=== PATIENT | female | born 1975 | race American Indian/Alaskan Native ===

== ENCOUNTER 2016-08-07 14:13 | Emergency (ER) | payer MEDICAID, MEDICARE ==
[2016-08-07 14:28] VITALS: BP 102/83; PULSE 67; RESP 16; TEMP 98; O2SAT 99
[2016-08-07] MEDS ORDERED: Lidocaine 1% Inj (20ml) ONE (15:12)
[2016-08-07] MEDS ORDERED: TDAP Vaccine 0.5 mL Syr IM ONE ×2 (15:13→15:57)
--- NOTE | 2016-08-07 15:56 | ED PDOC ---
HPI: Wound Care - HPI Time Seen by Provider: 08/07/16 14:55 Chief Complaint (Nursing): Abnormal Skin Integrity Chief Complaint (Provider): finger laceration Additional Complaint(s): 41 year old [id number] female presents with laceration to right fifth digit sustained when she was washing a glass and it broke in her hand. Patient applied pressure dressing and came to ED. She is not sure of last tetanus. She has mild pain to the affected area but denies any numbness or tingling. Past Medical History Reviewed: Historical Data, Nursing Documentation, Vital Signs Vital Signs: Last Vital Signs Temp 98.0 F 08/07/16 14:27 Pulse 67 08/07/16 14:27 Resp 16 08/07/16 14:27 BP 102/83 08/07/16 14:27 Pulse Ox 99 08/07/16 14:27 - Medical History PMH: Hypothyroidism - Surgical History Other surgeries: tubal ligation - Family History Family History: States: No Known Family Hx - Living Arrangements Living Arrangements: With Family - Social History Current smoker - smoking cessation education provided: No Alcohol: None Drugs: Denies - Home Medications Home Medications: Ambulatory Orders Medication Instructions Recorded Acetaminophen [Tylenol 325mg tab] 2 tab PO Q6H #50 tab 06/30/15 Ketorolac Tromethamine [Toradol] 10 mg PO 19 #0 tab 06/30/15 Levothyroxine [Synthroid] 1 tab PO DAILY 06/30/15 diaZEpam [Valium] 5 mg PO QID #12 tab 06/30/15 Ibuprofen [Motrin Tab] 800 mg PO Q8 PRN #20 tab 08/07/16 - Allergies Allergies/Adverse Reactions: Allergies Allergy/AdvReac Type Severity Reaction Status Date / Time No Known Allergies Allergy Verified 08/07/16 14:27 Review of Systems ROS Statement: Except As Marked, All Systems Reviewed And Found Negative Musculoskeletal: Positive for: Other (right 5th digit laceration) Physical Exam - Reviewed Nursing Documentation Reviewed: Yes Vital Signs Reviewed: Yes - Physical Exam Appears: Positive for: Well, Non-toxic, No Acute Distress Skin: Negative for: Rash Eye Exam: Positive for: Normal appearance Neck: Positive for: Painless ROM Extremity: Positive for: Other (2 cm flap laceration noted to ulnar aspect of right 5th digit, mild active bleeding, full rom of affected digit. N/V intact, no FB) Neurologic/Psych: Positive for: Alert, Oriented - Laboratory Results Urine POC: Negative (test declined, patient denies any possibility of , has had tubal ligation) - ECG O2 Sat by Pulse Oximetry: 99 Pulse Ox Interpretation: Normal - Other Rad Right hand x-ray X-Ray: Interpreted by Me, Viewed By Me X-Ray Interpretation: no fx, no dis, no radiopaque foreign body Procedure: Wound Repair - Time Performed Time Performed: 15:59 - Time Out Time Out: Side verified, Site verified, Patient ID confirmed, Sterile procedures obs. - Procedure Procedure: Wound Repair: Right 5th digit laceration repair - Consent Obtained Consent obtained: Verbal - Performed by Performed by: Mid-level Provider - Indications Indication(s):: Laceration - Location Shape:: Other (flap) Dimensions Length cm: 2 Depth:: Epidermis - Anesthetic Technique Anesthetic Technique: Local Local/Regional Anesthetic:: Lidocaine 1% - Debris Debris:: None - Irrigated Irrigated with ml of normal saline: 30 - Complexity Complexity:: Simple (one layer) - Wound repair method Sutures:: # (5), Size (5-0), Type (nylon), Technique (interrupted) - Complications Complications: none - Patient tolerated procedure Patient Tolerated Procedure:: Well Medical Decision Making Medical Decision Makin41 year old with finger laceration Plan: Tetanus booster Lac repair X-ray right hand See procedure note, wound care instructions given. Rx motrin 800 mg Disposition - Clinical Impression Clinical Impression: Finger laceration, Requires a booster tetanus - Patient ED Disposition Is Patient to be Admitted: No Counseled Patient/Family Regarding: Diagnosis, Need For Followup, Rx Given - Disposition Referrals: Sherrill Jama MD [Family Provider] - Disposition: Routine/Home Disposition Time: 16:01 Condition: STABLE Additional Instructions: Keep wound clean and dry. Take rx meds as directed as needed for pain. Wound check 2-3 days. Suture removal in 10-14 days. Prescriptions: Ibuprofen [Motrin Tab] 800 mg PO Q8 PRN #20 tab PRN Reason: Pain, Moderate (4-7) Instructions: Finger Laceration (ED), Diphtheria/Acellular Pertussis/Tetanus Booster Vaccine (Tdap) (Injection)
--- NOTE | 2016-08-07 16:14 | RAD ---
PROCEDURE: Right Hand Radiographs. HISTORY: trauma COMPARISON: None. FINDINGS: BONES: No acute fracture. JOINTS: Normal. No osteoarthritic changes. SOFT TISSUES: Soft tissue swelling 5th digit. No visualized/radiopaque foreign body OTHER FINDINGS: None. IMPRESSION: Soft tissue swelling without acute articular or osseous abnormality. Concordant results with the preliminary interpretation rendered by the emergency department physician procedure.
== END 2016-08-07 16:06 | disposition home or self-care (01) ==
LOC: H.ER 14:13
DX: S61.206A Unspecified open wound of right little finger without damage to nail, initial encounter (principal); W26.0XXA Contact with knife, initial encounter; Y92.000 Kitchen of unspecified non-institutional (private) residence as the place of occurrence of the external cause; E03.9 Hypothyroidism, unspecified

== ENCOUNTER 2016-11-23 10:56 | Emergency (ER) | payer MEDICARE ==
[2016-11-23 11:00] VITALS: BP 102/64; TEMP 98; O2SAT 98
[2016-11-23 11:01] VITALS: BMI 27.4
[2016-11-23] MEDS ORDERED: Sodium Chloride 0.9% 1,000 ML IV STA (11:35)
--- NOTE | 2016-11-23 11:45 | ED PDOC ---
HPI: General Adult Time Seen by Provider: 11/23/16 11:01 Chief Complaint (Nursing): Back Pain History Per: Patient Additional Complaint(s): Pt. states at approximately 1100 today she felt "lightheaded" and felt like she was going to pass out. Symptoms resolved after a few seconds after she sat down. Shortly after symptoms returned but not as severe and only lasted for a few seconds. Since then lightheadedness has not returned. Further states that this morning she woke up with back pain. Reports a 4 year hx of chronic lower back pain due to a herniated disc. This morning at 0800 she took one dose of Tylenol and Valium. Pt. states she takes valium every so often but it has never made her feel lightheaded. Denies fever, LOC, N/V, head injury, incontinence, dysuria, hematuria, saddle paresthesias, abdominal pain, palpitations. Past Medical History Reviewed: Historical Data, Nursing Documentation, Vital Signs Vital Signs: Last Vital Signs Temp 98 F 11/23/16 10:59 Pulse 58 L 11/23/16 11:46 Resp BP 102/64 11/23/16 10:59 Pulse Ox 98 11/23/16 11:46 - Medical History PMH: Anemia, Hypothyroidism - Family History Family History: States: No Known Family Hx - Home Medications Home Medications: Ambulatory Orders Medication Instructions Recorded Acetaminophen [Tylenol 325mg tab] 2 tab PO Q6H #50 tab 06/30/15 Ketorolac Tromethamine [Toradol] 10 mg PO 19 #0 tab 06/30/15 Levothyroxine [Synthroid] 1 tab PO DAILY 06/30/15 diaZEpam [Valium] 5 mg PO QID #12 tab 06/30/15 Ibuprofen [Motrin Tab] 800 mg PO Q8 PRN #20 tab 08/07/16 Meloxicam [Mobic] 7.5 mg PO DAILY PRN #30 tab 11/23/16 Methocarbamol [Robaxin] 500 mg PO Q8 PRN #30 tablet 11/23/16 - Allergies Allergies/Adverse Reactions: Allergies Allergy/AdvReac Type Severity Reaction Status Date / Time No Known Allergies Allergy Verified 08/07/16 14:27 Review of Systems ROS Statement: Except As Marked, All Systems Reviewed And Found Negative Neurological: Positive for: Dizziness Physical Exam - Physical Exam Appears: Positive for: Well, Non-toxic, No Acute Distress Head Exam: Positive for: ATRAUMATIC, NORMAL INSPECTION, NORMOCEPHALIC Skin: Positive for: Normal Color, Warm. Negative for: Rash Eye Exam: Positive for: Normal appearance, EOMI, PERRL. Negative for: Nystagmus ENT: Positive for: Normal ENT Inspection, TM Is/Are (non-erythematous, non- bulging b/l). Negative for: Pharyngeal Erythema, Tonsillar Exudate, Tonsillar Swelling Neck: Positive for: Normal, Painless ROM Cardiovascular/Chest: Positive for: Regular Rate, Rhythm Respiratory: Positive for: CNT, Normal Breath Sounds Gastrointestinal/Abdominal: Positive for: Normal Exam, Soft. Negative for: Tenderness Extremity: Positive for: Normal ROM Neurologic/Psych: Positive for: Alert, Oriented - Laboratory Results Result Diagrams: 11/23/16 11:45 11/23/16 11:45 - ECG ECG: Positive for: Interpreted By Me ECG Rhythm: Positive for: Sinus Bradycardia. Negative for: ST/T Changes Rate: 58 O2 Sat by Pulse Oximetry: 98 - Progress ED Course And Treament: Labs ordered. Toradol 15mg IV, IV NS bolus x 1 given. Re-evaluation Time: 13:19 (Pt. states her menstruation just ended yesterday. Pain has improved.) Condition: Re-examined, Improved Disposition - Clinical Impression Clinical Impression: Chronic low back pain, Lightheaded - Patient ED Disposition Is Patient to be Admitted: No - Disposition Referrals: Sully Hayes [Outside] Disposition: Routine/Home Disposition Time: 13:20 Condition: IMPROVED Prescriptions: Meloxicam [Mobic] 7.5 mg PO DAILY PRN #30 tab PRN Reason: Pain, Mild (1-3) Methocarbamol [Robaxin] 500 mg PO Q8 PRN #30 tablet PRN Reason: Muscle Spasm Instructions: Chronic Back Pain (ED), Lightheadedness (ED) Forms: Sully Burden ([place]), [facility] School/Work Excuse
[2016-11-23 11:46] VITALS: PULSE 58
[2016-11-23 12:04] LABS: BASO % 0.8 % (0.0-2.0); EOS # 0.1 K/uL (0.0-0.7); EOS % 1.3 % (0.0-4.0); HEMOGLOBIN 11.5 g/dL (12.0-16.0); LYMPH # 1.8 K/uL (1.0-4.3); LYMPH % 43.3 % (20.0-40.0); MEAN CELL VOLUME 78.9 fl (81.0-99.0); MEAN CORPUSCULAR HEMOGLOBIN 24.4 pg (27.0-31.0); MEAN PLATELET VOLUME 7.4 fl (7.2-11.7); MONO # 0.3 K/uL (0.0-0.8); MONO % 6.6 % (0.0-10.0); NRBC % 0.1 % (0.0-0.0); RBC 4.69 Mil/uL (3.80-5.20); RED CELL DISTRIBUTION WIDTH 15.8 % (11.5-14.5); WHITE BLOOD COUNT 4.1 K/uL (4.8-10.8)
[2016-11-23 12:18] LABS: ALB/GLOB RATIO 1.2 (1.0-2.1); ALBUMIN 4.3 g/dL (3.5-5.0); ALT/SGPT 40 U/L (9-52); AST/SGOT 45 U/L (14-36); BLOOD UREA NITROGEN 16 mg/dl (7-17); CALCIUM 9.3 mg/dL (8.4-10.2); GFR AFRICAN-AMERICAN > 60; GFR NON-AFRICAN AMERICAN > 60
[2016-11-23 13:02] LABS: SQUAMOUS EPITHIAL 3 /hpf (0-5); URINE BILIRUBIN NEGATIVE (NEGATIVE); URINE BLOOD MODERATE (NEGATIVE); URINE CLARITY SLIGHTY-CLOUDY (Clear); URINE COLOR YELLOW (YELLOW); URINE GLUCOSE (UA) NEG (Normal); URINE LEUKOCYTE ESTERASE NEG Leu/uL (Negative); URINE NITRATE NEGATIVE (NEGATIVE); URINE PROTEIN NEGATIVE (NEGATIVE); URINE UROBILINOGEN 0.2-1.0 mg/dL (0.2-1.0)
== END 2016-11-23 13:40 | disposition home or self-care (01) ==
LOC: H.ER 10:56
DX: G89.29 Other chronic pain (principal); M54.5 Low back pain; R42 Dizziness and giddiness
CPT/HCPCS: 80053; 81003; 81025; 82948; 84703; 85025; 96361; 96374; 99283; J1885; J7040

== ENCOUNTER 2017-08-12 23:56 | Emergency (ER) | payer MEDICAID, MEDICARE ==
[2017-08-12 23:58] VITALS: BMI 27.4
[2017-08-13 00:08] VITALS: RESP 18; TEMP 98; O2SAT 99
[2017-08-13 00:19] VITALS: BP 107/75
[2017-08-13 00:39] LABS: BASO # 0.1 K/uL (0.0-0.2); EOS # 0.1 K/uL (0.0-0.7); EOS % 2.1 % (0.0-4.0); HEMOGLOBIN 11.2 g/dL (12.0-16.0); LYMPH # 2.7 K/uL (1.0-4.3); LYMPH % 45.1 % (20.0-40.0); MEAN CELL VOLUME 79.4 fl (81.0-99.0); MEAN CORPUSCULAR HEMOGLOBIN 25.2 pg (27.0-31.0); MEAN CORPUSCULAR HGB CONC 31.7 g/dL (33.0-37.0); MEAN PLATELET VOLUME 7.5 fl (7.2-11.7); MONO # 0.5 K/uL (0.0-0.8); MONO % 8.2 % (0.0-10.0); NEUT # 2.6 K/uL (1.8-7.0); NEUT % 43.6 % (50.0-75.0); NRBC % 0.1 % (0.0-0.0); RBC 4.46 Mil/uL (3.80-5.20); RED CELL DISTRIBUTION WIDTH 15.9 % (11.5-14.5)
[2017-08-13 00:55] LABS: BLOOD UREA NITROGEN 14 mg/dl (7-17); CALCIUM 8.8 mg/dL (8.4-10.2); GFR AFRICAN-AMERICAN > 60; GFR NON-AFRICAN AMERICAN > 60
--- NOTE | 2017-08-13 01:07 | ED PDOC ---
HPI: SOB/CHF/COPD Time Seen by Provider: 08/13/17 00:10 Chief Complaint (Nursing): Palpitations Chief Complaint (Provider): Palpitations and Shortness of Breath History Per: Patient History/Exam Limitations: no limitations Onset/Duration Of Symptoms: Days (x 3) Current Symptoms Are (Timing): Still Present Additional Complaint(s): 42 year old female with a history of hypothyroidism presents to the ED with shortness of breath for the last 3 days and palpitations for 1 hour prior to arrival. Patient reports that the shortness of breath is intermittent. It comes on spontaneously and she has a hard time catching her breath before it goes away again. Both symptoms were resolved prior to arrival to the ED. Denies chest pain, syncope, dizziness, recent travel, surgeries and any other medical complaints. PMD: Dr. Sherrill Jama MD Past Medical History Reviewed: Historical Data, Nursing Documentation, Vital Signs Vital Signs: Last Vital Signs Temp 98 F 08/13/17 00:04 Pulse 67 08/13/17 01:55 Resp 18 08/13/17 00:04 BP 107/75 08/13/17 00:17 Pulse Ox 99 08/13/17 01:55 - Medical History PMH: Anemia, Hypothyroidism - Surgical History Other surgeries: tubal ligation - Family History Family History: States: CAD - Home Medications Home Medications: Ambulatory Orders Medication Instructions Recorded Acetaminophen [Tylenol 325mg tab] 2 tab PO Q6H #50 tab 06/30/15 Ketorolac Tromethamine [Toradol] 10 mg PO 19 #0 tab 06/30/15 Levothyroxine [Synthroid] 1 tab PO DAILY 06/30/15 diaZEpam [Valium] 5 mg PO QID #12 tab 06/30/15 Ibuprofen [Motrin Tab] 800 mg PO Q8 PRN #20 tab 08/07/16 Meloxicam [Mobic] 7.5 mg PO DAILY PRN #30 tab 11/23/16 Methocarbamol [Robaxin] 500 mg PO Q8 PRN #30 tablet 11/23/16 - Allergies Allergies/Adverse Reactions: Allergies Allergy/AdvReac Type Severity Reaction Status Date / Time No Known Allergies Allergy Verified 08/07/16 14:27 Wells Criteria for PE - Wells Criteria for Pulmonary Embolism Clinical Signs and Symptoms of DVT: No P.E is #1 Diagnosis, or Equally Likely: No Heart Rate >100: No Immobilization at least 3 days;Surgery previous 4 weeks: No Previous, objectively diagnosed PE or DVT: No Hemoptysis: No Malignancy w/treatment within 6 months, or palliative: No Total Score: 0 Review of Systems ROS Statement: Except As Marked, All Systems Reviewed And Found Negative Cardiovascular: Positive for: Palpitations Respiratory: Positive for: Shortness of Breath (intermittent) Physical Exam - Reviewed Nursing Documentation Reviewed: Yes Vital Signs Reviewed: Yes - Physical Exam Appears: Positive for: Non-toxic, No Acute Distress Head Exam: Positive for: ATRAUMATIC, NORMOCEPHALIC Skin: Positive for: Normal Color, Warm, Dry Eye Exam: Positive for: EOMI, Normal appearance, PERRL Neck: Positive for: Normal, Painless ROM Cardiovascular/Chest: Positive for: Regular Rate, Rhythm. Negative for: Murmur Respiratory: Positive for: Normal Breath Sounds. Negative for: Respiratory Distress Gastrointestinal/Abdominal: Positive for: Normal Exam, Soft Back: Positive for: Normal Inspection. Negative for: L CVA Tenderness, R CVA Tenderness, Vertebral Tenderness Extremity: Positive for: Normal ROM. Negative for: Deformity Neurologic/Psych: Positive for: Alert, Oriented. Negative for: Motor/Sensory Deficits - Laboratory Results Result Diagrams: 08/13/17 00:27 08/13/17 00:27 - ECG ECG: Positive for: Interpreted By Me, Viewed By Me ECG Rhythm: Positive for: Normal QRS, Normal ST Segment, Sinus Rhythm. Negative for: ST/T Changes Rate: 67 O2 Sat by Pulse Oximetry: 99 (RA) Pulse Ox Interpretation: Normal - Radiology X-Ray: Interpreted by Me, Viewed By Ut X-Ray Interpretation: No Acute Disease - Progress Re-evaluation Time: 01:45 Condition: Re-examined, Improved Medical Decision Making Medical Decision Making: Time: 00:10 Impression: dyspnea and palpitations Differential diagnoses include but are not limited to: paroxysmal cardiac arrhythmia, ACS, pulmonary embolism Initial Plan: --EKG --BMP --TSH --Troponin I --CBC with differentials --D Dimer --Chest x-ray Chest x-ray --results reviewed and reveal no acute findings. Scribe Attestation: Documented by Ariadna Macdonald, acting as a scribe for Chas Nguyen MD Provider Scribe Attestation: All medical record entries made by the Scribe were at my direction and personally dictated by me. I have reviewed the chart and agree that the record accurately reflects my personal performance of the history, physical exam, medical decision making, and the department course for this patient. I have also personally directed, reviewed, and agree with the discharge instructions and disposition. Disposition - Clinical Impression Clinical Impression: Palpitations, Dyspnea, Hypothyroidism - Patient ED Disposition Is Patient to be Admitted: No Doctor Will See Patient In The: Office Counseled Patient/Family Regarding: Studies Performed, Diagnosis - Disposition Referrals: Sherrill Jama MD [Primary Care Provider] - Disposition: Routine/Home Disposition Time: 01:53 Condition: GOOD Additional Instructions: Follow up with your PCP in 2-3 days. Return for worsening or recurrent episodes. Instructions: Shortness of Breath (Dyspnea) (DC), Palpitations (DC), Hypothyroidism (Underactive Thyroid)
[2017-08-13 01:54] VITALS: PULSE 67
--- NOTE | 2017-08-13 07:56 | RAD ---
HISTORY: dyspnea COMPARISON: Chest radiographs 04/27/2015. TECHNIQUE: Chest PA and lateral FINDINGS: LUNGS: No active pulmonary disease. PLEURA: No significant pleural effusion identified. No pneumothorax apparent. CARDIOVASCULAR: Normal. OSSEOUS STRUCTURES: No significant abnormalities. VISUALIZED UPPER ABDOMEN: Normal. OTHER FINDINGS: None. IMPRESSION: No interval acute cardiopulmonary disease appreciated.
--- NOTE | 2017-08-13 19:22 | CARD ---
APPROVED REPORT EKG Measurement Heart [id number] OK 180P17 [id number] <Conclusion> Normal sinus rhythm Normal ECG
== END 2017-08-13 02:31 | disposition home or self-care (01) ==
LOC: H.ER 23:56
DX: R06.00 Dyspnea, unspecified (principal); R00.2 Palpitations; E03.9 Hypothyroidism, unspecified

== ENCOUNTER 2017-10-17 04:40 | Emergency (ER) | payer MEDICAID ==
[2017-10-17 04:40] VITALS: BMI 27.4
[2017-10-17 05:04] VITALS: RESP 16
--- NOTE | 2017-10-17 05:15 | ED PDOC ---
HPI: Chest Pain Chief Complaint (Provider): chest pain History Per: Patient History/Exam Limitations: no limitations Onset/Duration Of Symptoms: Mins Current Symptoms Are (Timing): Still Present Quality: "Pain" Exacerbating Factors: Deep Breathing <Kyara Hernandez - Last Filed: 10/17/17 05:51> <Chas Nguyen - Last Filed: 10/18/17 03:38> Time Seen by Provider: 10/17/17 05:00 Chief Complaint (Nursing): Chest Pain Additional Complaint(s): 42 y/o female presents for evaluation of right-sided chest pain x 30 mins. Patient states pain woke her from her sleep, worsened by deep breaths. Also notes shortness of breath when pain presents. Patient also notes upper back pain x 4 days, worsened by movement. Denies fever, nausea/vomiting, palpitations, abdominal pain, leg pain/swelling, recent travel, OCP use. (Kyara Hernandez) Past Medical History Reviewed: Historical Data, Nursing Documentation, Vital Signs - Medical History PMH: Anemia, Hypothyroidism - Surgical History Surgical History: No Surg Hx - Family History Family History: States: Unknown Family Hx, CAD - Social History Current smoker - smoking cessation education provided: No Alcohol: Social Drugs: Denies <Kyara Hernandez - Last Filed: 10/17/17 05:51> <Chas Nguyen - Last Filed: 10/18/17 03:38> Vital Signs: Last Vital Signs Temp 98.0 F 10/17/17 06:57 Pulse 59 L 10/17/17 06:57 Resp 16 10/17/17 06:57 BP 102/64 10/17/17 06:57 Pulse Ox 98 10/17/17 06:57 - Home Medications Home Medications: Ambulatory Orders Medication Instructions Recorded Acetaminophen [Tylenol 325mg tab] 2 tab PO Q6H #50 tab 06/30/15 Ketorolac Tromethamine [Toradol] 10 mg PO 19 #0 tab 06/30/15 Levothyroxine [Synthroid] 1 tab PO DAILY 06/30/15 diaZEpam [Valium] 5 mg PO QID #12 tab 06/30/15 Ibuprofen [Motrin Tab] 800 mg PO Q8 PRN #20 tab 08/07/16 Meloxicam [Mobic] 7.5 mg PO DAILY PRN #30 tab 11/23/16 Methocarbamol [Robaxin] 500 mg PO Q8 PRN #30 tablet 11/23/16 - Allergies Allergies/Adverse Reactions: Allergies Allergy/AdvReac Type Severity Reaction Status Date / Time No Known Allergies Allergy Verified 10/17/17 05:01 Review of Systems ROS Statement: Except As Marked, All Systems Reviewed And Found Negative Cardiovascular: Positive for: Chest Pain Musculoskeletal: Positive for: Back Pain <Kyara Hernandez - Last Filed: 10/17/17 05:51> Physical Exam - Reviewed Nursing Documentation Reviewed: Yes Vital Signs Reviewed: Yes - Physical Exam Appears: Positive for: Well, Non-toxic, No Acute Distress Head Exam: Positive for: ATRAUMATIC, NORMAL INSPECTION, NORMOCEPHALIC Skin: Positive for: Normal Color Eye Exam: Positive for: Normal appearance ENT: Positive for: Normal ENT Inspection Cardiovascular/Chest: Positive for: Regular Rate, Rhythm Respiratory: Positive for: Normal Breath Sounds Gastrointestinal/Abdominal: Positive for: Normal Exam Back: Positive for: Normal Inspection. Negative for: L CVA Tenderness, R CVA Tenderness, Decreased ROM, Muscle Spasm Extremity: Positive for: Normal ROM Neurologic/Psych: Positive for: Alert, Oriented. Negative for: Motor/Sensory Deficits <Kyara Hernandez - Last Filed: 10/17/17 05:51> - ECG ECG: Positive for: Viewed By Me (reviewed by ED attending) ECG Rhythm: Positive for: Sinus Rhythm O2 Sat by Pulse Oximetry: 99 <Kyara Hernandez - Last Filed: 10/17/17 05:51> - Laboratory Results Result Diagrams: 10/17/17 05:20 10/17/17 05:20 <Chas Nguyen - Last Filed: 10/18/17 03:38> - Progress ED Course And Treament: labs, ekg, chest xray (Kyara Hernandez) Disposition - Disposition Disposition Time: 06:00 Patient Signed Over To: Chas Nguyen Handoff Comments: pending labs, xray, re-eval <Kyara Hernandez - Last Filed: 10/17/17 05:51> - Patient ED Disposition Is Patient to be Admitted: No Doctor Will See Patient In The: Office Counseled Patient/Family Regarding: Studies Performed, Diagnosis - Disposition Disposition: Routine/Home Disposition Time: 07:00 <Chas Nguyen - Last Filed: 10/18/17 03:38> - Clinical Impression Clinical Impression: Chest pain, Back pain - Disposition Condition: GOOD Additional Instructions: Take motrin for pain. Follow up with your PCP in 2-3 days. Instructions: Chest Pain, Upper Back Pain
[2017-10-17 05:51] LABS: BASO % 0.7 % (0.0-2.0); EOS # 0.1 K/uL (0.0-0.7); EOS % 1.4 % (0.0-4.0); HEMOGLOBIN 11.5 g/dL (12.0-16.0); LYMPH # 1.9 K/uL (1.0-4.3); LYMPH % 41.2 % (20.0-40.0); MEAN CORPUSCULAR HEMOGLOBIN 25.3 pg (27.0-31.0); MEAN CORPUSCULAR HGB CONC 31.6 g/dL (33.0-37.0); MEAN PLATELET VOLUME 7.6 fl (7.2-11.7); MONO # 0.4 K/uL (0.0-0.8); NEUT # 2.3 K/uL (1.8-7.0); NEUT % 47.7 % (50.0-75.0); RBC 4.53 Mil/uL (3.80-5.20); RED CELL DISTRIBUTION WIDTH 15.7 % (11.5-14.5); WHITE BLOOD COUNT 4.7 K/uL (4.8-10.8)
[2017-10-17 06:04] LABS: ALB/GLOB RATIO 1.2 (1.0-2.1); ALBUMIN 3.9 g/dL (3.5-5.0); ALT/SGPT 30 U/L (9-52); AST/SGOT 36 U/L (14-36); BLOOD UREA NITROGEN 14 mg/dl (7-17); CALCIUM 9.2 mg/dL (8.4-10.2); GFR AFRICAN-AMERICAN > 60; GFR NON-AFRICAN AMERICAN > 60
[2017-10-17 06:58] VITALS: BP 102/64; PULSE 59; TEMP 98; O2SAT 98
--- NOTE | 2017-10-17 09:12 | RAD ---
HISTORY: chest pain COMPARISON: Chest radiographs 08/13/2017. TECHNIQUE: Chest PA and lateral FINDINGS: LUNGS: No active pulmonary disease. PLEURA: No significant pleural effusion identified. No pneumothorax apparent. CARDIOVASCULAR: Normal. OSSEOUS STRUCTURES: No significant abnormalities. VISUALIZED UPPER ABDOMEN: Normal. OTHER FINDINGS: None. IMPRESSION: No interval acute cardiopulmonary disease appreciated.
--- NOTE | 2017-10-20 11:25 | CARD ---
APPROVED REPORT EKG Measurement Heart [id number] <Conclusion> Normal sinus rhythm Low voltage QRS Borderline ECG
== END 2017-10-17 06:58 | disposition home or self-care (01) ==
LOC: H.ER 04:40
DX: R07.89 Other chest pain (principal); M54.9 Dorsalgia, unspecified; E03.9 Hypothyroidism, unspecified